=== PATIENT | male | born 1950 | race Two or more races ===

== ENCOUNTER 2017-04-13 08:21 | Day surgery (SDC) | payer OTHER ==
[~2017-04-13] VITALS: Ht 172.7 cm; Wt 73.1 kg
[2017-04-13] MEDS ORDERED: LISI5 (09:13)
[2017-04-13] MEDS ORDERED: Fish Oil 10001000 MG (09:13)
[2017-04-13] MEDS ORDERED: Hair, Skin & N1 EACH (09:14)
== END 2017-04-13 11:26 | disposition home or self-care (01) ==
LOC: ORSCSDS 08:21
PROVIDERS: Internal Medicine Gastroenterology
PROC: 0DBM8ZX Excision of Descending Colon, Via Natural or Artificial Opening Endoscopic, Diagnostic (ICD-10-PCS; principal; 2017-04-13 10:00)
PROC: 0DBN8ZX Excision of Sigmoid Colon, Via Natural or Artificial Opening Endoscopic, Diagnostic (ICD-10-PCS; principal; 2017-04-13 10:00)
PROC: 3E0H8GC Introduction of Other Therapeutic Substance into Lower GI, Via Natural or Artificial Opening Endoscopic (ICD-10-PCS; principal; 2017-04-13 10:00)
DX: K92.1 Melena (principal); R19.7 Diarrhea, unspecified; D12.4 Benign neoplasm of descending colon; D12.5 Benign neoplasm of sigmoid colon; K57.30 Diverticulosis of large intestine without perforation or abscess without bleeding; K64.8 Other hemorrhoids; F17.210 Nicotine dependence, cigarettes, uncomplicated; I10 Essential (primary) hypertension; Z79.899 Other long term (current) drug therapy
CPT/HCPCS: 88305; J1980